=== PATIENT | female | born 1975 | race African-American/Black ===

== ENCOUNTER 2023-11-01 16:46 | Emergency (ER) | payer OTHER ==
[2023-11-01 17:03] VITALS: BP 134/84; PULSE 84; RESP 16; TEMP 98.4; BMI 30.2
[2023-11-01] MEDS ORDERED: KETOROLAC TROMETHAMINE 30 MG/1 ML VIAL IM ONE (18:21)
[2023-11-01] MEDS ORDERED: KETOROLAC TROMETHAMINE 30 MG/1 ML VIAL ONE (18:23)
== END 2023-11-01 18:30 | disposition home or self-care (01) ==
LOC: FER 16:46
PROC: 3E0233Z Introduction of Anti-inflammatory into Muscle, Percutaneous Approach (ICD-10-PCS; principal; 2023-11-01)
DX: M54.9 Dorsalgia, unspecified (principal)
CPT/HCPCS: 99284-25